=== PATIENT | female | born 1935 | race Caucasian/White ===

== ENCOUNTER 2016-12-25 11:00 | Emergency (ER) | payer OTHER, BC ==
[~2016-12-25] VITALS: Ht 149.9 cm; Wt 60.0 kg
[~2016-12-25 11:00] MED LIST: ASPIRIN325 MG PO; AUGMENTIN875 MG PO; B COMPLETE1 EACH PO; CILOXAN 0.100 DROP/5 LEFT EYE; LIDODERM 5% P1 PATCH TD; PERCOCET 5/31 TABLET PO; TRAMADOL HCL50 MG PO; TYLENOL WITH C1 EACH PO
[2016-12-25 12:19] LABS: HEMATOCRIT 39.5 % (36.0-46.0); MCH 29.4 PG (29.0-34.0); MCHC 32.9 G/DL (30.0-36.0); MCV 89.4 FL (83-99); MEAN PLAT.VOLUME 10.7 uM^3 (9.5-12.4); PLATELET COUNT 187 K/uL (156-360); RBC DIS.WIDTH-CV 13.2 % (11.8-14.6); RBC DIS.WIDTH-SD 43.1 % (39-53); RED BLOOD COUNT 4.42 M/uL (3.80-5.20); WHITE BLOOD COUNT 6.6 K/uL (4.1-10.2)
[2016-12-25 12:49] LABS: CHLORIDE 107 mEq/L (99-109); POTASSIUM 4.3 mEq/L (3.7-5.4); SODIUM 140 mEq/L (136-147)
[2016-12-25 12:52] LABS: GLUCOSE 83 mg/dL (70-99)
[2016-12-25 12:53] LABS: ANION GAP 7 MEQ/L (2-14); TOTAL BILIRUBIN 0.5 mg/dL (0.0-1.0); TROP-I INTERPRETATION NEGATIVE; TROPONIN-I < 0.01 ng/mL (0.0-0.30)
[2016-12-25 12:55] LABS: ALKALINE PHOSPHATASE 47 IU/L (3-129); GFR ESTIMATE (CALCULATED) > 59 mL/min/
[2016-12-25 12:56] LABS: UREA NITROGEN (BUN) 14 mg/dL (9-23)
[2016-12-25 12:58] LABS: CREATINE KINASE 111 IU/L (1-294); TOTAL CK 111 IU/L (1-294)
[2016-12-25 13:04] LABS: CK-MB 2.8 ng/mL (0.0-4.9)
[2016-12-25] MEDS ORDERED: NORVASC5 MG PO (14:36)
[2016-12-25 15:29] VITALS: BP 145/76
== END 2016-12-25 15:32 | disposition left against medical advice (07) ==
LOC: EME 11:00
PROVIDERS: Emergency Medicine
DX: R51 Headache (principal); D35.2 Benign neoplasm of pituitary gland; I10 Essential (primary) hypertension; Z53.20 Procedure and treatment not carried out because of patient's decision for unspecified reasons
CPT/HCPCS: 70450; 80053; 82550; 82553; 84484; 85027; 93005; 99281; 99283

== ENCOUNTER 2017-04-08 05:52 | Inpatient (IN) | payer OTHER, BC ==
[~2017-04-08] VITALS: Ht 152.4 cm; Wt 61.0 kg
[~2017-04-08 05:52] MED LIST changes: +NORVASC5 MG PO
[2017-04-08 06:55] LABS: EOSINOPHIL COUNT 0.1 K/uL (0-0.3); HEMATOCRIT 32.3 % (36.0-46.0); IMMATURE GRANULOCYTE (%) 1.2 % (0.0-0.7); IMMATURE GRANULOCYTE COUNT 0.1 K/uL; INSTRUMENT ABS NEUTROPHIL CT 3.8 K/uL; LYMPHOCYTE COUNT 0.9 K/uL (1.0-2.8); MCH 29.4 PG (29.0-34.0); MCHC 34.1 G/DL (30.0-36.0); MCV 86.4 FL (83-99); MEAN PLAT.VOLUME 10.7 uM^3 (9.5-12.4); MONOCYTE (%) 16.7 % (3-12); NEUTROPHIL (%) 64.7 % (45-76); NEUTROPHIL COUNT 3.8 K/uL (1.8-6.4); PLATELET COUNT 215 K/uL (156-360); RBC DIS.WIDTH-CV 12.9 % (11.8-14.6); RBC DIS.WIDTH-SD 40.6 % (39-53); RED BLOOD COUNT 3.74 M/uL (3.80-5.20); WHITE BLOOD COUNT 5.9 K/uL (4.1-10.2)
[2017-04-08 07:09] LABS: ANION GAP 9 MEQ/L (2-14); CHLORIDE 92 MEQ/L (99-109); GFR ESTIMATE (CALCULATED) > 59 mL/min/; GLUCOSE 94 mg/dL (70-99); POTASSIUM 3.7 MEQ/L (3.7-5.4); SAMPLE HEMOLYSIS CHECK 0; SAMPLE ICTERIC CHECK 0; SAMPLE LIPEMIA CHECK 0; SODIUM 124 MEQ/L (136-147); UREA NITROGEN (BUN) 6 mg/dL (9-23)
[2017-04-08 10:11] LABS: ADD MIUA? NO; BILIRUBIN NEGATIVE; BLOOD NEGATIVE; COLOR STRAW ((YELLOW)); GLUCOSE (STRIP) NEGATIVE; KETONES 20; LEUKOCYTES NEGATIVE; NITRITE NEGATIVE; PROTEIN (STRIP) NEGATIVE; SPECIFIC GRAVITY 1.008 (1.000-1.030); UCUL ADDED? NO; UROBILINOGEN 0.2 MG/DL (0.2-1.0)
[2017-04-08 13:38] VITALS: BP 148/80
[2017-04-08 14:15] LABS: ANION GAP 9 MEQ/L (2-14); CHLORIDE 91 MEQ/L (99-109); POTASSIUM 3.7 MEQ/L (3.7-5.4); SAMPLE HEMOLYSIS CHECK 0; SAMPLE ICTERIC CHECK 0; SAMPLE LIPEMIA CHECK 0; SODIUM 122 MEQ/L (136-147)
[2017-04-08 14:20] LABS: GFR ESTIMATE (CALCULATED) > 59 mL/min/; GLUCOSE 93 mg/dL (70-99); UREA NITROGEN (BUN) 5 mg/dL (9-23)
[2017-04-08 15:32] LABS: ANION GAP 9 MEQ/L (2-14); CHLORIDE 91 MEQ/L (99-109); POTASSIUM 3.7 MEQ/L (3.7-5.4); SAMPLE HEMOLYSIS CHECK 0; SAMPLE ICTERIC CHECK 0; SAMPLE LIPEMIA CHECK 0; SODIUM 123 MEQ/L (136-147)
[2017-04-08 15:38] LABS: GFR ESTIMATE (CALCULATED) > 59 mL/min/; GLUCOSE 93 mg/dL (70-99); UREA NITROGEN (BUN) 5 mg/dL (9-23)
[2017-04-08 17:55] VITALS: BP 158/88
[2017-04-08 19:11] LABS: ANION GAP 10 MEQ/L (2-14); CHLORIDE 91 MEQ/L (99-109); POTASSIUM 3.4 MEQ/L (3.7-5.4); SAMPLE HEMOLYSIS CHECK 0; SAMPLE ICTERIC CHECK 0; SAMPLE LIPEMIA CHECK 0; SODIUM 124 MEQ/L (136-147)
[2017-04-08 19:16] LABS: GFR ESTIMATE (CALCULATED) > 59 mL/min/; GLUCOSE 95 mg/dL (70-99); UREA NITROGEN (BUN) 5 mg/dL (9-23)
[2017-04-08 20:41] VITALS: BP 156/74
[2017-04-08 21:08] LABS: ANION GAP 12 MEQ/L (2-14); CHLORIDE 91 MEQ/L (99-109); GFR ESTIMATE (CALCULATED) > 59 mL/min/; GLUCOSE 91 mg/dL (70-99); POTASSIUM 3.4 MEQ/L (3.7-5.4); SAMPLE HEMOLYSIS CHECK 0; SAMPLE ICTERIC CHECK 0; SAMPLE LIPEMIA CHECK 0; SODIUM 124 MEQ/L (136-147); UREA NITROGEN (BUN) 5 mg/dL (9-23)
[2017-04-08 23:10] LABS: CHLORIDE 96 mEq/L (99-109); POTASSIUM 3.3 mEq/L (3.7-5.4); SODIUM 126 mEq/L (136-147)
[2017-04-08 23:12] LABS: GLUCOSE 88 mg/dL (70-99)
[2017-04-08 23:13] LABS: ANION GAP 7 MEQ/L (2-14)
[2017-04-08 23:16] LABS: GFR ESTIMATE (CALCULATED) > 59 mL/min/; UREA NITROGEN (BUN) 5 mg/dL (9-23)
[2017-04-09 00:07] VITALS: BP 132/71
[2017-04-09 03:28] VITALS: BP 133/76
[2017-04-09 05:23] LABS: ANION GAP 8 MEQ/L (2-14); CHLORIDE 99 MEQ/L (99-109); GFR ESTIMATE (CALCULATED) > 59 mL/min/; GLUCOSE 79 mg/dL (70-99); POTASSIUM 3.8 MEQ/L (3.7-5.4); SAMPLE HEMOLYSIS CHECK 0; SAMPLE ICTERIC CHECK 0; SAMPLE LIPEMIA CHECK 0; SODIUM 132 MEQ/L (136-147); UREA NITROGEN (BUN) 4 mg/dL (9-23)
[2017-04-09 08:11] VITALS: BP 139/68
[2017-04-09 10:18] LABS: ANION GAP 6 MEQ/L (2-14); CHLORIDE 96 MEQ/L (99-109); POTASSIUM 3.6 MEQ/L (3.7-5.4); SAMPLE HEMOLYSIS CHECK 0; SAMPLE ICTERIC CHECK 0; SAMPLE LIPEMIA CHECK 0; SODIUM 128 MEQ/L (136-147)
[2017-04-09 10:25] LABS: GFR ESTIMATE (CALCULATED) > 59 mL/min/; UREA NITROGEN (BUN) 4 mg/dL (9-23)
[2017-04-09 10:26] LABS: GLUCOSE 231 mg/dL (70-99)
[2017-04-09 13:05] VITALS: BP 136/67
[2017-04-09 13:16] LABS: ANION GAP 9 MEQ/L (2-14); CHLORIDE 99 MEQ/L (99-109); GFR ESTIMATE (CALCULATED) > 59 mL/min/; POTASSIUM 4.1 MEQ/L (3.7-5.4); SAMPLE HEMOLYSIS CHECK 0; SAMPLE ICTERIC CHECK 0; SAMPLE LIPEMIA CHECK 0; SODIUM 134 MEQ/L (136-147); UREA NITROGEN (BUN) 7 mg/dL (9-23)
[2017-04-09 13:18] LABS: GLUCOSE 57 mg/dL (70-99)
[2017-04-09 16:50] VITALS: BP 135/76
[2017-04-09 19:15] VITALS: BP 124/59
[2017-04-10 00:16] VITALS: BP 126/69
[2017-04-10 04:37] VITALS: BP 149/72
[2017-04-10 05:25] LABS: BASOPHIL COUNT 0.1 K/uL (0-0.1); EOSINOPHIL (%) 1.5 % (0-5); EOSINOPHIL COUNT 0.1 K/uL (0-0.3); HEMATOCRIT 36.3 % (36.0-46.0); IMMATURE GRANULOCYTE (%) 0.8 % (0.0-0.7); IMMATURE GRANULOCYTE COUNT 0.1 K/uL; INSTRUMENT ABS NEUTROPHIL CT 5.5 K/uL; LYMPHOCYTE COUNT 1.6 K/uL (1.0-2.8); MCH 29.6 PG (29.0-34.0); MCHC 33.6 G/DL (30.0-36.0); MCV 88.1 FL (83-99); MEAN PLAT.VOLUME 10.4 uM^3 (9.5-12.4); MONOCYTE (%) 15.9 % (3-12); MONOCYTE COUNT 1.4 K/uL (0-0.8); NEUTROPHIL (%) 62.6 % (45-76); NEUTROPHIL COUNT 5.5 K/uL (1.8-6.4); RBC DIS.WIDTH-CV 13.3 % (11.8-14.6); RBC DIS.WIDTH-SD 43.1 % (39-53); RED BLOOD COUNT 4.12 M/uL (3.80-5.20); WHITE BLOOD COUNT 8.8 K/uL (4.1-10.2)
[2017-04-10 05:41] LABS: PLATELET COUNT 283 K/uL (156-360)
[2017-04-10 06:20] LABS: ANION GAP 7 MEQ/L (2-14); CHLORIDE 99 MEQ/L (99-109); GFR ESTIMATE (CALCULATED) > 59 mL/min/; POTASSIUM 4.5 MEQ/L (3.7-5.4); SAMPLE HEMOLYSIS CHECK 1; SAMPLE ICTERIC CHECK 0; SAMPLE LIPEMIA CHECK 0; SODIUM 132 MEQ/L (136-147); UREA NITROGEN (BUN) 6 mg/dL (9-23)
[2017-04-10 06:24] LABS: GLUCOSE 80 mg/dL (70-99)
[2017-04-10 07:48] VITALS: BP 153/88
[2017-04-10] MEDS ORDERED: TYLENOL EXTRA500 MG PO (10:13)
[2017-04-10 12:19] VITALS: BP 143/70
[2017-04-10 17:34] VITALS: BP 150/71
[2017-04-10 20:20] VITALS: BP 122/57
[2017-04-11 00:10] VITALS: BP 143/70
[2017-04-11 04:01] VITALS: BP 121/67
[2017-04-11 05:32] LABS: BASOPHIL COUNT 0.1 K/uL (0-0.1); EOSINOPHIL (%) 1.7 % (0-5); EOSINOPHIL COUNT 0.1 K/uL (0-0.3); HEMATOCRIT 33.7 % (36.0-46.0); IMMATURE GRANULOCYTE (%) 0.9 % (0.0-0.7); IMMATURE GRANULOCYTE COUNT 0.1 K/uL; INSTRUMENT ABS NEUTROPHIL CT 4.5 K/uL; MCH 29.7 PG (29.0-34.0); MCHC 33.5 G/DL (30.0-36.0); MCV 88.7 FL (83-99); MEAN PLAT.VOLUME 10.4 uM^3 (9.5-12.4); MONOCYTE (%) 16.7 % (3-12); MONOCYTE COUNT 1.4 K/uL (0-0.8); NEUTROPHIL (%) 55.4 % (45-76); NEUTROPHIL COUNT 4.5 K/uL (1.8-6.4); PLATELET COUNT 279 K/uL (156-360); RBC DIS.WIDTH-CV 13.5 % (11.8-14.6); RBC DIS.WIDTH-SD 43.7 % (39-53); WHITE BLOOD COUNT 8.2 K/uL (4.1-10.2)
[2017-04-11 06:01] LABS: ANION GAP 9 MEQ/L (2-14); CHLORIDE 99 MEQ/L (99-109); GFR ESTIMATE (CALCULATED) > 59 mL/min/; GLUCOSE 83 mg/dL (70-99); MAGNESIUM 1.9 mg/dl (1.3-2.7); POTASSIUM 4.3 MEQ/L (3.7-5.4); SAMPLE HEMOLYSIS CHECK 0; SAMPLE ICTERIC CHECK 0; SAMPLE LIPEMIA CHECK 0; SODIUM 133 MEQ/L (136-147); UREA NITROGEN (BUN) 8 mg/dL (9-23)
[2017-04-11 09:16] VITALS: BP 134/67
[2017-04-11 11:56] VITALS: BP 109/70
[2017-04-11] MEDS ORDERED: AMLODIPINE BESYL5 MG PO (14:30)
[2017-04-11] MEDS ORDERED: FUROSEMIDE20 MG PO (14:30)
[2017-04-11] MEDS ORDERED: SODIUM CHLORIDE1 G1 PO (14:30)
== END 2017-04-11 17:06 | disposition home or self-care (01) | DRG 645 ==
LOC: EME → EDBD 05:52 → 2EAST 11:01 → 4EAST 11:01 → ENRESERV 11:02 → CANRESERV 11:13 → ENRESERV 11:14 → 2EAST 11:16 → ENRESERV 11:19 → EDOF 11:22 → ENRESERV 11:43 → 3EAST 12:37 → ENRESERV 16:02 → 3EAST 16:02 → ENRESERV 16:30 → 4EAST 17:42 → ENPENDDIS 04-11 → 4EAST 04-11 17:06
PROVIDERS: Emergency Medicine; Internal Medicine Nephrology; Internal Medicine Pulmonary Disease; Nurse Practitioner Adult Health
DX: E22.2 Syndrome of inappropriate secretion of antidiuretic hormone (principal); Z98.890 Other specified postprocedural states; I10 Essential (primary) hypertension; E86.0 Dehydration; F60.9 Personality disorder, unspecified; E87.6 Hypokalemia; D35.2 Benign neoplasm of pituitary gland; Z79.899 Other long term (current) drug therapy; G47.30 Sleep apnea, unspecified; Z79.82 Long term (current) use of aspirin
CPT/HCPCS: 70450; 80048; 80048 91; 81003; 83735; 83930; 83935; 84100; 84300; 85025; 99281; 99285; J1940; J2765; J7030; J7060

== ENCOUNTER 2017-11-15 18:07 | Emergency (ER) | payer OTHER, BC ==
[~2017-11-15] VITALS: Ht 154.9 cm; Wt 63.3 kg
[~2017-11-15 18:07] MED LIST changes: +AMLODIPINE BESYL5 MG PO; -B COMPLETE1 EACH PO; +B-COMPLEX-VITA1 EACH PO; +FUROSEMIDE20 MG PO; +SODIUM CHLORIDE1 G1 PO; +TYLENOL EXTRA500 MG PO
[2017-11-15 18:53] LABS: HEMATOCRIT 38.3 % (36.0-46.0); HEMOGLOBIN 12.8 G/DL (11.9-15.5); MCH 29.8 PG (29.0-34.0); MCHC 33.4 G/DL (30.0-36.0); MCV 89.3 FL (83-99); PLATELET COUNT 231 K/uL (156-360); RBC DIS.WIDTH-CV 13.8 % (11.8-14.6); RBC DIS.WIDTH-SD 45.1 % (39-53); RED BLOOD COUNT 4.29 M/uL (3.80-5.20); WHITE BLOOD COUNT 7.4 K/uL (4.1-10.2)
[2017-11-15 19:07] LABS: ALBUMIN 4.2 g/dL (3.2-4.8); CHLORIDE 107 mEq/L (99-109); POTASSIUM 4.2 mEq/L (3.7-5.4); SODIUM 143 mEq/L (136-147)
[2017-11-15 19:09] LABS: GLUCOSE 92 mg/dL (70-99); TOTAL PROTEIN 7.6 g/dL (6.4-8.3)
[2017-11-15 19:11] LABS: TOTAL BILIRUBIN 0.4 mg/dL (0.0-1.0)
[2017-11-15 19:13] LABS: ALKALINE PHOSPHATASE 51 IU/L (3-129); CREATININE 0.8 mg/dL (0.6-1.3); GFR ESTIMATE (CALCULATED) > 59 mL/min/
[2017-11-15 19:14] LABS: UREA NITROGEN (BUN) 15 mg/dL (9-23)
[2017-11-15 19:15] LABS: AST (GOT) 17 IU/L (2-34)
[2017-11-15 19:16] LABS: ALT (GPT) 11 IU/L (3-49); LIPASE 808 U/L (1.0-51.0)
[2017-11-15 19:17] LABS: TROP-I INTERPRETATION NEGATIVE; TROPONIN-I 0.01 ng/mL (0.0-0.30)
[2017-11-15 23:57] VITALS: BP 194/84
== END 2017-11-15 23:58 | disposition left against medical advice (07) ==
LOC: EME 18:07
DX: K85.90 Acute pancreatitis without necrosis or infection, unspecified (principal); R07.9 Chest pain, unspecified; N13.30 Unspecified hydronephrosis; Z88.0 Allergy status to penicillin; Z88.1 Allergy status to other antibiotic agents; Z53.20 Procedure and treatment not carried out because of patient's decision for unspecified reasons
CPT/HCPCS: 71046; 76705; 80053; 83690; 84484; 85027; 93005; 99281; 99285; J7030; J7040

== ENCOUNTER 2017-11-16 08:04 | Inpatient (IN) | payer OTHER, BC ==
[~2017-11-16] VITALS: Ht 152.4 cm; Wt 62.4 kg
[2017-11-16 09:17] LABS: HEMATOCRIT 37.7 % (36.0-46.0); HEMOGLOBIN 12.5 G/DL (11.9-15.5); MCH 29.8 PG (29.0-34.0); MCHC 33.2 G/DL (30.0-36.0); MCV 89.8 FL (83-99); RBC DIS.WIDTH-CV 13.7 % (11.8-14.6); WHITE BLOOD COUNT 6.1 K/uL (4.1-10.2)
[2017-11-16 09:27] LABS: ALBUMIN 3.8 G/DL (3.2-4.8); ALKALINE PHOSPHATASE 45 IU/L (3-129); ALT (GPT) 9 IU/L (3-49); AMYLASE 151 IU/L (1-118); AST (GOT) 17 IU/L (2-34); CHLORIDE 108 MEQ/L (99-109); CREATININE 0.7 MG/DL (0.6-1.3); GFR ESTIMATE (CALCULATED) > 59 mL/min/; GLUCOSE 83 mg/dL (70-99); LIPASE 233 U/L (1.0-51.0); POTASSIUM 4.1 MEQ/L (3.7-5.4); SODIUM 141 MEQ/L (136-147); TOTAL BILIRUBIN 0.8 MG/DL (0.0-1.0); TOTAL PROTEIN 6.5 G/DL (6.4-8.3); UREA NITROGEN (BUN) 11 mg/dL (9-23)
[2017-11-16 09:46] LABS: APPEARANCE CLEAR ((CLEAR)); BILIRUBIN NEGATIVE; BLOOD NEGATIVE; COLOR STRAW ((YELLOW)); GLUCOSE (STRIP) NEGATIVE; KETONES 5; LEUKOCYTES NEGATIVE; NITRITE NEGATIVE; PROTEIN (STRIP) NEGATIVE; SPECIFIC GRAVITY 1.009 (1.000-1.030); UCUL ADDED? NO; UROBILINOGEN 0.2 MG/DL (0.2-1.0)
[2017-11-16 09:50] LABS: TROP-I INTERPRETATION NEGATIVE; TROPONIN-I < 0.01 ng/mL (0.0-0.30)
[2017-11-16 10:00] LABS: PLATELET CLUMPS PRESENT - PLATELET COUNTS APPEARS DECREASED; PLATELET COUNT UNABLE TO REPORT K/uL (156-360)
[2017-11-16 14:34] VITALS: BP 195/91
[2017-11-16 19:33] VITALS: BP 159/74
[2017-11-16 23:42] VITALS: BP 117/62
[2017-11-17 03:22] VITALS: BP 116/55
[2017-11-17 07:00] VITALS: BP 144/64
[2017-11-17 07:27] LABS: LIPASE 33 U/L (1.0-51.0)
[2017-11-17 07:28] LABS: AMYLASE 53 IU/L (1-118)
[2017-11-17 16:57] VITALS: BP 161/70
== END 2017-11-17 18:17 | disposition home or self-care (01) | DRG 439 ==
LOC: EME 08:04 → EDOF 11:43 → 2EAST 11:43 → ENRESERV 11:46 → 2EAST 14:19
PROVIDERS: Family Medicine; Nurse Practitioner Family
DX: K85.90 Acute pancreatitis without necrosis or infection, unspecified (principal); G47.30 Sleep apnea, unspecified; I10 Essential (primary) hypertension; N13.30 Unspecified hydronephrosis; Z98.42 Cataract extraction status, left eye
CPT/HCPCS: 74176; 80053; 81003; 82150; 83690; 83735; 84484; 85027; 93005; 99281; 99285; J1650